=== PATIENT | female | born 1950 | race Caucasian/White ===

== ENCOUNTER 2020-03-19 17:15 | Inpatient (IN) ==
[2020-03-19] MEDS ORDERED: 0.9 % Sodium Chloride 1,000 ML IVC ONE (17:43)
[2020-03-19 18:39] LABS: Basophils % 0.5 %; Eosinophils % 0.7 %; Hematocrit 24.2 % (35.3-44.9); Hemoglobin 8.3 g/dL (11.5-15.4); Immature Granulocytes % 0.7 % (0-4); Lymphocytes # 0.7 K/mcL (0.6-4.6); Lymphocytes % 12.1 %; Mean Corpuscular HGB Conc 34.3 g/dL (31.6-35.5); Mean Corpuscular Hemoglobin 37.4 pg (28.0-33.3); Mean Platelet Volume 9.1 fL (9.4-12.4); Monocytes # 0.6 K/mcL (0.0-1.3); Monocytes % 9.4 %; Neutrophils # 4.6 K/mcL (1.6-8.9); Platelet Count 229 K/mcL (140-400); Red Blood Count 2.22 M/mcL (3.82-4.97); Red Cell Distribution Width 21.2 % (11.5-14.5); Segmented Neutrophils % 76.6 %; White Blood Count 5.9 K/mcL (4.3-11.1)
[2020-03-19 18:52] LABS: Alanine Aminotransferase 39 Units/L (7-52); Albumin 2.9 g/dL (3.5-5.7); Albumin/Globulin Ratio 1.2 (1.1-2.2); Alkaline Phosphatase 228 Units/L (34-104); Aspartate Amino Transferase 153 Units/L (13-39); BUN/Creatinine Ratio 12 (6-26); Bilirubin,Direct 1.4 mg/dL (0.0-0.2); Bilirubin,Indirect 1.1 mg/dL (0.0-1.0); Bilirubin,Total 2.5 mg/dL (0.3-1.0); Blood Urea Nitrogen 7 mg/dL (8-23); Calcium 6.2 mg/dL (8.6-10.3); Carbon Dioxide 28 mEq/L (23-29); Chloride 99 mEq/L (98-107); Globulin 2.4 g/dL (2.4-3.5); Glucose 104 mg/dL (70-105); Osmolality,Calculated 280 (280-300); Potassium 2.7 mEq/L (3.5-5.1); Sodium 136 mEq/L (136-145); Total Protein 5.3 g/dL (6.4-8.9); Troponin I 0.03 ng/mL (< 0.04); eGFR For African Americans > 60 (> 60); eGFR For Non-African Americans > 60 (> 60)
[2020-03-19 18:53] LABS: INR 1.1; Prothrombin Time 12.3 Seconds (9.4-12.1)
[2020-03-19] MEDS ORDERED: Potassium Chloride 40 MEQ, Lidocaine 1% 2 ML in D5% in Water 500 ML IVPB ONE (19:21)
[2020-03-19] MEDS ORDERED: Potassium Effervescent 25 MEQ TABLET.EFF PO ONE (19:22)
[2020-03-19] MEDS: Calcium Gluconate 1gm/50mL 1 GM/50 ML BAG IVPB SCH ×2 (20:44→22:14)
[2020-03-19 20:50] LABS: Adenovirus Not Detected (Not Detect); Bordetella Pertussis Not Detected (Not Detect); Chlamydophila pneumoniae Not Detected (Not Detect); Coronavirus 229E Not Detected (Not Detect); Coronavirus HKU1 Not Detected (Not Detect); Coronavirus NL63 Not Detected (Not Detect); Coronavirus OC43 Not Detected (Not Detect); Human Metapneumovirus Not Detected (Not Detect); Human Rhinovirus/Enterovirus Not Detected (Not Detect); Influenza A Subtype 2009 H1 Not Detected (Not Detect); Influenza B Not Detected (Not Detect); Mycoplasma pneumoniae Not Detected (Not Detect); Parainfluenza Virus 1 Not Detected (Not Detect); Parainfluenza Virus 2 Not Detected (Not Detect); Parainfluenza Virus 3 Not Detected (Not Detect); Parainfluenza Virus 4 Not Detected (Not Detect); Respiratory Syncytial Virus Not Detected (Not Detect); SARS-CoV-2 Not Detected (Not Detect)
[2020-03-19] MEDS ORDERED: Isovue-370 500 ML BOTTLE IVP ONE (21:12)
[2020-03-19 21:57] LABS: Bilirubin,Urine Negative (Negative); Blood,Urine Negative (Negative); Clarity,Urine Clear (Clear); Color,Urine Yellow (Yellow); Glucose,Urine (UA) Normal (Normal); Hyaline Casts,Urine Few per lpf (None Seen); Ketones,Urine Negative (Negative); Leukocyte Esterase,Urine Trace (Negative); Nitrite,Urine Negative (Negative); PH,Urine 7.5 pH Units (5.0-8.0); Protein,Urine 100 mg/dL (Neg-Trace); RBC,Urine 0-3 per hpf (0-3); Specific Gravity,Urine 1.008 (1.010-1.025)
[2020-03-20] MEDS ORDERED: Ondansetron ODT 4 MG TAB.RAPDIS SL PRN
[2020-03-20] MEDS ORDERED: Acetaminophen 325 MG TABLET PO PRN
[2020-03-20] MEDS ORDERED: Naloxone 0.4 MG/ML INJ IVP PRN
[2020-03-20] MEDS ORDERED: Ipratropium/Albuterol Neb 3 ML IH PRN (00:07)
[2020-03-20] MEDS ORDERED: levoFLOXacin 500 MG/100 ML 500 MG/100 ML BAG IVPB SCH (01:00)
[2020-03-20] MEDS ORDERED: Metoprolol XL (24 HR) Succ 50 MG TAB.ER.24H PO SCH (01:43)
[2020-03-20] MEDS: 0.9 % Sodium Chloride 1,000 ML IVC SCH ×2 (01:51→20:51)
[2020-03-20] MEDS: Mirtazapine 15 MG TABLET PO SCH ×2 (02:10→20:51)
[2020-03-20 02:46] LABS: Basophils % 0.6 %; Eosinophils % 1.2 %; Hematocrit 22.9 % (35.3-44.9); Hemoglobin 7.9 g/dL (11.5-15.4); Immature Granulocytes % 0.6 % (0-4); Lymphocytes # 1.1 K/mcL (0.6-4.6); Lymphocytes % 31.4 %; Mean Corpuscular HGB Conc 34.5 g/dL (31.6-35.5); Mean Corpuscular Hemoglobin 36.9 pg (28.0-33.3); Monocytes # 0.4 K/mcL (0.0-1.3); Monocytes % 10.7 %; Neutrophils # 1.9 K/mcL (1.6-8.9); Platelet Count 210 K/mcL (140-400); Red Blood Count 2.14 M/mcL (3.82-4.97); Red Cell Distribution Width 20.5 % (11.5-14.5); Segmented Neutrophils % 55.5 %; White Blood Count 3.4 K/mcL (4.3-11.1)
[2020-03-20 03:09] LABS: % Iron Saturation 37 % (15-50); Alanine Aminotransferase 187 Units/L (7-52); Albumin 2.7 g/dL (3.5-5.7); Albumin/Globulin Ratio 1.3 (1.1-2.2); Alkaline Phosphatase 363 Units/L (34-104); Aspartate Amino Transferase 590 Units/L (13-39); BUN/Creatinine Ratio 10 (6-26); Blood Urea Nitrogen 6 mg/dL (8-23); Calcium 6.4 mg/dL (8.6-10.3); Carbon Dioxide 25 mEq/L (23-29); Chloride 100 mEq/L (98-107); Cholesterol 214 mg/dL (< 200); Globulin 2.1 g/dL (2.4-3.5); Glucose 98 mg/dL (70-105); HDL Cholesterol 43 mg/dL (40-59); Iron 84 mcg/dL (50-170); LDL Cholesterol,Calculated 138 mg/dL (< 100); Magnesium 1.1 mg/dL (1.6-2.6); Osmolality,Calculated 276 (280-300); Phosphorous 2.2 mg/dL (2.7-4.5); Potassium 3.4 mEq/L (3.5-5.1); Sodium 134 mEq/L (136-145); Total Protein 4.8 g/dL (6.4-8.9); Transferrin 163 mg/dL (203-362); Triglycerides 165 mg/dL (< 150); eGFR For African Americans > 60 (> 60); eGFR For Non-African Americans > 60 (> 60)
[2020-03-20 03:10] LABS: Protein/Creatinine Ratio,Urine 3.96 mg/mg (0.00-0.20)
[2020-03-20 04:05] LABS: Ferritin 1458 ng/mL (10-120)
[2020-03-20 04:07] LABS: Folate 16.1 ng/mL (3.0-16.0)
[2020-03-20 04:37] LABS: Thyroid Stimulating Hormone 173.285 mcIU/mL (0.340-5.600)
[2020-03-20] MEDS ORDERED: Potassium Phosphate 44 MEQ in 0.9 % Sodium Chloride 250 ML IVPB ONE (07:33)
[2020-03-20] MEDS: Metoprolol XL (24 HR) Succ 50 MG TAB.ER.24H PO SCH (08:19)
[2020-03-20] MEDS: amLODIPine 5 MG TABLET PO SCH (08:19)
[2020-03-20] MEDS ORDERED: *HR* Enoxaparin 30 MG/0.3 ML SYRINGE SQ SCH (09:00)
[2020-03-21] MEDS: *HR* Enoxaparin 40 MG/0.4 ML SYRINGE SQ SCH (05:11)
[2020-03-21 05:34] LABS: Basophils % 0.6 %; Eosinophils # 0.1 K/mcL (0.0-0.6); Eosinophils % 1.2 %; Hematocrit 22.4 % (35.3-44.9); Hemoglobin 7.4 g/dL (11.5-15.4); Immature Granulocytes % 0.4 % (0-4); Lymphocytes # 0.8 K/mcL (0.6-4.6); Lymphocytes % 15.1 %; Mean Corpuscular Hemoglobin 36.5 pg (28.0-33.3); Mean Corpuscular Volume 110.3 fL (83.0-100.0); Mean Platelet Volume 9.3 fL (9.4-12.4); Monocytes % 8.9 %; Neutrophils # 3.7 K/mcL (1.6-8.9); Platelet Count 221 K/mcL (140-400); Red Blood Count 2.03 M/mcL (3.82-4.97); Red Cell Distribution Width 21.1 % (11.5-14.5); Segmented Neutrophils % 73.8 %
[2020-03-21 05:36] LABS: Monocytes # 0.5 K/mcL (0.0-1.3)
[2020-03-21 05:50] LABS: Alanine Aminotransferase 183 Units/L (7-52); Albumin 2.5 g/dL (3.5-5.7); Albumin/Globulin Ratio 1.3 (1.1-2.2); Alkaline Phosphatase 362 Units/L (34-104); Anisocytosis 1+ (Not Present); Aspartate Amino Transferase 338 Units/L (13-39); BUN/Creatinine Ratio 11 (6-26); Bilirubin,Direct 0.8 mg/dL (0.0-0.2); Bilirubin,Indirect 0.8 mg/dL (0.0-1.0); Bilirubin,Total 1.6 mg/dL (0.3-1.0); Blood Urea Nitrogen 5 mg/dL (8-23); Calcium 6.3 mg/dL (8.6-10.3); Carbon Dioxide 23 mEq/L (23-29); Chloride 105 mEq/L (98-107); Glucose 103 mg/dL (70-105); Macrocytosis Present (Not Present); Magnesium 1.5 mg/dL (1.6-2.6); Osmolality,Calculated 276 (280-300); Potassium 3.7 mEq/L (3.5-5.1); Sodium 134 mEq/L (136-145); Total Protein 4.5 g/dL (6.4-8.9); eGFR For African Americans > 60 (> 60); eGFR For Non-African Americans > 60 (> 60)
[2020-03-21 05:51] LABS: Platelet Estimate Normal (Normal)
[2020-03-21] MEDS: amLODIPine 5 MG TABLET PO SCH (08:53)
[2020-03-21] MEDS: Metoprolol XL (24 HR) Succ 50 MG TAB.ER.24H PO SCH (08:53)
[2020-03-21] MEDS ORDERED: Ipratropium Neb 0.5 MG NEBULIZER IH PRN (09:02)
[2020-03-21] MEDS: Cefepime HCl 2,000 MG in Water for inj. (sterile) 20 ML IVP SCH ×3 (09:55→23:38)
[2020-03-21] MEDS: MetroNIDAZOLE 500 MG/100 ML 500 MG/100 ML BAG IVPB SCH ×3 (09:56→23:38)
[2020-03-21] MEDS ORDERED: Calcium Gluconate 1gm/50mL 1 GM/50 ML BAG IVPB ONE (11:00)
[2020-03-21] MEDS: Ipratropium/Albuterol Neb 3 ML IH SCH ×5 (11:00→23:26)
[2020-03-21] MEDS: Furosemide 20 MG/2 ML VIAL IVP SCH (15:02)
[2020-03-21] MEDS: Mirtazapine 15 MG TABLET PO SCH (20:36)
[2020-03-22] MEDS: Ipratropium/Albuterol Neb 3 ML IH SCH ×6 (03:45→23:20)
[2020-03-22 04:26] LABS: Basophils % 0.5 %; Eosinophils # 0.1 K/mcL (0.0-0.6); Eosinophils % 1.2 %; Hematocrit 21.3 % (35.3-44.9); Hemoglobin 7.3 g/dL (11.5-15.4); Immature Granulocytes % 0.3 % (0-4); Lymphocytes # 1.3 K/mcL (0.6-4.6); Lymphocytes % 21.8 %; Mean Corpuscular HGB Conc 34.3 g/dL (31.6-35.5); Mean Corpuscular Hemoglobin 37.4 pg (28.0-33.3); Mean Corpuscular Volume 109.2 fL (83.0-100.0); Monocytes # 0.6 K/mcL (0.0-1.3); Monocytes % 10.6 %; Neutrophils # 3.8 K/mcL (1.6-8.9); Platelet Count 202 K/mcL (140-400); Red Blood Count 1.95 M/mcL (3.82-4.97); Segmented Neutrophils % 65.6 %; White Blood Count 5.8 K/mcL (4.3-11.1)
[2020-03-22 04:46] LABS: BUN/Creatinine Ratio 11 (6-26); Blood Urea Nitrogen 6 mg/dL (8-23); Carbon Dioxide 25 mEq/L (23-29); Chloride 100 mEq/L (98-107); Glucose 98 mg/dL (70-105); Magnesium 1.6 mg/dL (1.6-2.6); Osmolality,Calculated 274 (280-300); Potassium 3.2 mEq/L (3.5-5.1); Sodium 133 mEq/L (136-145); eGFR For African Americans > 60 (> 60); eGFR For Non-African Americans > 60 (> 60)
[2020-03-22] MEDS: *HR* Enoxaparin 40 MG/0.4 ML SYRINGE SQ SCH (06:23)
[2020-03-22 06:29] LABS: Alanine Aminotransferase 109 Units/L (7-52); Albumin 2.4 g/dL (3.5-5.7); Albumin/Globulin Ratio 1.2 (1.1-2.2); Alkaline Phosphatase 278 Units/L (34-104); Aspartate Amino Transferase 102 Units/L (13-39); Bilirubin,Direct 0.3 mg/dL (0.0-0.2); Bilirubin,Indirect 0.8 mg/dL (0.0-1.0); Bilirubin,Total 1.1 mg/dL (0.3-1.0); Total Protein 4.4 g/dL (6.4-8.9)
[2020-03-22] MEDS: Furosemide 20 MG/2 ML VIAL IVP SCH (09:42)
[2020-03-22] MEDS: Cefepime HCl 2,000 MG in Water for inj. (sterile) 20 ML IVP SCH ×3 (09:43→23:33)
[2020-03-22] MEDS: MetroNIDAZOLE 500 MG/100 ML 500 MG/100 ML BAG IVPB SCH ×3 (09:43→23:33)
[2020-03-22] MEDS: Metoprolol XL (24 HR) Succ 50 MG TAB.ER.24H PO SCH (09:45)
[2020-03-22] MEDS: amLODIPine 5 MG TABLET PO SCH (09:45)
[2020-03-22] MEDS: Mirtazapine 15 MG TABLET PO SCH (20:38)
[2020-03-23] MEDS: Ipratropium/Albuterol Neb 3 ML IH SCH ×2 (03:56→07:57)
[2020-03-23 04:26] LABS: Alanine Aminotransferase 74 Units/L (7-52); Albumin 2.4 g/dL (3.5-5.7); Albumin/Globulin Ratio 1.1 (1.1-2.2); Alkaline Phosphatase 227 Units/L (34-104); Aspartate Amino Transferase 45 Units/L (13-39); BUN/Creatinine Ratio 17 (6-26); Bilirubin,Direct 0.2 mg/dL (0.0-0.2); Bilirubin,Indirect 0.7 mg/dL (0.0-1.0); Bilirubin,Total 0.9 mg/dL (0.3-1.0); Blood Urea Nitrogen 9 mg/dL (8-23); Calcium 8.1 mg/dL (8.6-10.3); Carbon Dioxide 28 mEq/L (23-29); Chloride 99 mEq/L (98-107); Globulin 2.2 g/dL (2.4-3.5); Glucose 103 mg/dL (70-105); Magnesium 1.3 mg/dL (1.6-2.6); Osmolality,Calculated 275 (280-300); Potassium 3.7 mEq/L (3.5-5.1); Sodium 133 mEq/L (136-145); Total Protein 4.6 g/dL (6.4-8.9); eGFR For African Americans > 60 (> 60); eGFR For Non-African Americans > 60 (> 60)
[2020-03-23] MEDS: amLODIPine 5 MG TABLET PO SCH (07:49)
[2020-03-23] MEDS: Furosemide 20 MG/2 ML VIAL IVP SCH (07:50)
[2020-03-23] MEDS: MetroNIDAZOLE 500 MG/100 ML 500 MG/100 ML BAG IVPB SCH ×2 (07:50→16:22)
[2020-03-23] MEDS: Cefepime HCl 2,000 MG in Water for inj. (sterile) 20 ML IVP SCH ×2 (07:50→16:22)
[2020-03-23] MEDS: Metoprolol XL (24 HR) Succ 50 MG TAB.ER.24H PO SCH (07:50)
[2020-03-23 08:19] LABS: Basophils % 0.6 %; Eosinophils # 0.1 K/mcL (0.0-0.6); Eosinophils % 1.6 %; Hematocrit 23.3 % (35.3-44.9); Hemoglobin 7.6 g/dL (11.5-15.4); Immature Granulocytes % 0.5 % (0-4); Lymphocytes # 1.1 K/mcL (0.6-4.6); Lymphocytes % 17.2 %; Mean Corpuscular HGB Conc 32.6 g/dL (31.6-35.5); Mean Corpuscular Hemoglobin 35.8 pg (28.0-33.3); Mean Corpuscular Volume 109.9 fL (83.0-100.0); Monocytes # 0.8 K/mcL (0.0-1.3); Monocytes % 12.2 %; Neutrophils # 4.2 K/mcL (1.6-8.9); Platelet Count 251 K/mcL (140-400); Red Blood Count 2.12 M/mcL (3.82-4.97); Red Cell Distribution Width 19.3 % (11.5-14.5); Segmented Neutrophils % 67.9 %; White Blood Count 6.2 K/mcL (4.3-11.1)
[2020-03-23] MEDS ORDERED: Ipratropium/Albuterol Neb 3 ML IH PRN (09:19)
[2020-03-23] MEDS: Mirtazapine 15 MG TABLET PO SCH (21:31)
[2020-03-24] MEDS: MetroNIDAZOLE 500 MG/100 ML 500 MG/100 ML BAG IVPB SCH ×4 (00:15→23:35)
[2020-03-24] MEDS: Cefepime HCl 2,000 MG in Water for inj. (sterile) 20 ML IVP SCH ×4 (00:15→23:35)
[2020-03-24 04:48] LABS: Basophils % 0.7 %; Eosinophils # 0.1 K/mcL (0.0-0.6); Eosinophils % 2.3 %; Hematocrit 22.2 % (35.3-44.9); Hemoglobin 7.4 g/dL (11.5-15.4); Immature Granulocytes % 0.3 % (0-4); Lymphocytes # 1.2 K/mcL (0.6-4.6); Lymphocytes % 19.6 %; Mean Corpuscular HGB Conc 33.3 g/dL (31.6-35.5); Mean Corpuscular Hemoglobin 35.4 pg (28.0-33.3); Mean Corpuscular Volume 106.2 fL (83.0-100.0); Monocytes # 0.8 K/mcL (0.0-1.3); Monocytes % 12.9 %; Neutrophils # 3.8 K/mcL (1.6-8.9); Platelet Count 257 K/mcL (140-400); Red Blood Count 2.09 M/mcL (3.82-4.97); Red Cell Distribution Width 18.8 % (11.5-14.5); Segmented Neutrophils % 64.2 %
[2020-03-24 05:13] LABS: Alanine Aminotransferase 56 Units/L (7-52); Albumin 2.7 g/dL (3.5-5.7); Albumin/Globulin Ratio 1.3 (1.1-2.2); Alkaline Phosphatase 197 Units/L (34-104); Aspartate Amino Transferase 31 Units/L (13-39); BUN/Creatinine Ratio 16 (6-26); Bilirubin,Direct 0.2 mg/dL (0.0-0.2); Bilirubin,Indirect 0.7 mg/dL (0.0-1.0); Bilirubin,Total 0.9 mg/dL (0.3-1.0); Blood Urea Nitrogen 9 mg/dL (8-23); Calcium 8.1 mg/dL (8.6-10.3); Carbon Dioxide 31 mEq/L (23-29); Chloride 94 mEq/L (98-107); Globulin 2.1 g/dL (2.4-3.5); Glucose 88 mg/dL (70-105); Magnesium 1.4 mg/dL (1.6-2.6); Osmolality,Calculated 270 (280-300); Potassium 3.5 mEq/L (3.5-5.1); Sodium 131 mEq/L (136-145); Total Protein 4.8 g/dL (6.4-8.9); eGFR For African Americans > 60 (> 60); eGFR For Non-African Americans > 60 (> 60)
[2020-03-24] MEDS: amLODIPine 5 MG TABLET PO SCH (07:22)
[2020-03-24] MEDS: Furosemide 20 MG/2 ML VIAL IVP SCH (07:22)
[2020-03-24] MEDS: Metoprolol XL (24 HR) Succ 50 MG TAB.ER.24H PO SCH (07:22)
[2020-03-24] MEDS: Mirtazapine 15 MG TABLET PO SCH (20:26)
[2020-03-25 03:31] LABS: Basophils % 0.6 %; Eosinophils # 0.1 K/mcL (0.0-0.6); Eosinophils % 2.4 %; Hematocrit 21.2 % (35.3-44.9); Hemoglobin 7.3 g/dL (11.5-15.4); Immature Granulocytes % 0.7 % (0-4); Mean Corpuscular HGB Conc 34.4 g/dL (31.6-35.5); Mean Corpuscular Hemoglobin 37.1 pg (28.0-33.3); Mean Corpuscular Volume 107.6 fL (83.0-100.0); Mean Platelet Volume 8.6 fL (9.4-12.4); Monocytes # 0.7 K/mcL (0.0-1.3); Neutrophils # 3.5 K/mcL (1.6-8.9); Platelet Count 255 K/mcL (140-400); Red Blood Count 1.97 M/mcL (3.82-4.97); Red Cell Distribution Width 18.5 % (11.5-14.5); Segmented Neutrophils % 64.3 %; White Blood Count 5.4 K/mcL (4.3-11.1)
[2020-03-25 03:50] LABS: Alanine Aminotransferase 42 Units/L (7-52); Albumin 2.6 g/dL (3.5-5.7); Albumin/Globulin Ratio 1.2 (1.1-2.2); Alkaline Phosphatase 180 Units/L (34-104); Aspartate Amino Transferase 26 Units/L (13-39); BUN/Creatinine Ratio 19 (6-26); Bilirubin,Direct 0.3 mg/dL (0.0-0.2); Bilirubin,Indirect 0.5 mg/dL (0.0-1.0); Bilirubin,Total 0.8 mg/dL (0.3-1.0); Blood Urea Nitrogen 11 mg/dL (8-23); Calcium 8.2 mg/dL (8.6-10.3); Carbon Dioxide 32 mEq/L (23-29); Chloride 95 mEq/L (98-107); Globulin 2.2 g/dL (2.4-3.5); Glucose 88 mg/dL (70-105); Magnesium 1.4 mg/dL (1.6-2.6); Osmolality,Calculated 273 (280-300); Phosphorous 3.6 mg/dL (2.7-4.5); Potassium 3.4 mEq/L (3.5-5.1); Sodium 132 mEq/L (136-145); Total Protein 4.8 g/dL (6.4-8.9); eGFR For African Americans > 60 (> 60); eGFR For Non-African Americans > 60 (> 60)
[2020-03-25] MEDS: Cefepime HCl 2,000 MG in Water for inj. (sterile) 20 ML IVP SCH ×2 (07:10→14:58)
[2020-03-25] MEDS: Furosemide 20 MG/2 ML VIAL IVP SCH (07:11)
[2020-03-25] MEDS: MetroNIDAZOLE 500 MG/100 ML 500 MG/100 ML BAG IVPB SCH ×2 (07:11→14:58)
[2020-03-25] MEDS: Metoprolol XL (24 HR) Succ 50 MG TAB.ER.24H PO SCH (07:11)
[2020-03-25] MEDS: amLODIPine 5 MG TABLET PO SCH (07:11)
[2020-03-25] MEDS: Mirtazapine 15 MG TABLET PO SCH (20:15)
[2020-03-26] MEDS: Cefepime HCl 2,000 MG in Water for inj. (sterile) 20 ML IVP SCH ×3 (00:28→14:56)
[2020-03-26] MEDS: MetroNIDAZOLE 500 MG/100 ML 500 MG/100 ML BAG IVPB SCH ×3 (00:29→14:56)
[2020-03-26 03:32] LABS: Basophils % 0.7 %; Eosinophils # 0.1 K/mcL (0.0-0.6); Eosinophils % 1.9 %; Hematocrit 22.1 % (35.3-44.9); Hemoglobin 7.4 g/dL (11.5-15.4); Immature Granulocytes % 0.3 % (0-4); Lymphocytes # 1.2 K/mcL (0.6-4.6); Lymphocytes % 21.6 %; Mean Corpuscular HGB Conc 33.5 g/dL (31.6-35.5); Mean Corpuscular Hemoglobin 36.3 pg (28.0-33.3); Mean Corpuscular Volume 108.3 fL (83.0-100.0); Monocytes # 0.8 K/mcL (0.0-1.3); Monocytes % 14.5 %; Neutrophils # 3.5 K/mcL (1.6-8.9); Platelet Count 321 K/mcL (140-400); Red Blood Count 2.04 M/mcL (3.82-4.97); Red Cell Distribution Width 18.2 % (11.5-14.5); White Blood Count 5.7 K/mcL (4.3-11.1)
[2020-03-26 03:43] LABS: BUN/Creatinine Ratio 29 (6-26); Blood Urea Nitrogen 16 mg/dL (8-23); Calcium 8.1 mg/dL (8.6-10.3); Carbon Dioxide 32 mEq/L (23-29); Chloride 93 mEq/L (98-107); Glucose 92 mg/dL (70-105); Osmolality,Calculated 273 (280-300); Potassium 4.1 mEq/L (3.5-5.1); Sodium 131 mEq/L (136-145); eGFR For African Americans > 60 (> 60); eGFR For Non-African Americans > 60 (> 60)
[2020-03-26] MEDS: Metoprolol XL (24 HR) Succ 50 MG TAB.ER.24H PO SCH (08:25)
[2020-03-26] MEDS: amLODIPine 5 MG TABLET PO SCH (08:25)
[2020-03-26] MEDS ORDERED: MethylPREDNISolone 40 MG/ML VIAL IVP ONE (13:46)
[2020-03-26] MEDS: Ipratropium/Albuterol Neb 3 ML IH SCH ×2 (18:50→20:14)
[2020-03-26] MEDS: Mirtazapine 15 MG TABLET PO SCH (21:55)
[2020-03-27] MEDS: Cefepime HCl 2,000 MG in Water for inj. (sterile) 20 ML IVP SCH ×2 (00:07→08:48)
[2020-03-27] MEDS: MetroNIDAZOLE 500 MG/100 ML 500 MG/100 ML BAG IVPB SCH ×2 (00:09→08:49)
[2020-03-27] MEDS: Ipratropium/Albuterol Neb 3 ML IH SCH ×4 (00:16→12:05)
[2020-03-27 05:18] LABS: BUN/Creatinine Ratio 32 (6-26); Blood Urea Nitrogen 20 mg/dL (8-23); Calcium 8.8 mg/dL (8.6-10.3); Carbon Dioxide 30 mEq/L (23-29); Chloride 94 mEq/L (98-107); Glucose 103 mg/dL (70-105); Osmolality,Calculated 273 (280-300); Potassium 4.1 mEq/L (3.5-5.1); Sodium 130 mEq/L (136-145); eGFR For African Americans > 60 (> 60); eGFR For Non-African Americans > 60 (> 60)
[2020-03-27] MEDS: amLODIPine 5 MG TABLET PO SCH (08:48)
[2020-03-27] MEDS: Metoprolol XL (24 HR) Succ 50 MG TAB.ER.24H PO SCH (08:48)
[2020-03-27] MEDS ORDERED: predniSONE 20 MG TABLET PO SCH (09:00)
[2020-03-27 10:58] VITALS: BP 115/64
== END 2020-03-27 12:37 | disposition home or self-care (01) | DRG 177 ==
LOC: EMEROOARM 17:15 → 3ANU 17:15 → SUATTDRO 23:04 → 3ANU 23:44 → SUATTDRO 03-20 12:43
PROVIDERS: ADMIT Internal Medicine; ATTEND Internal Medicine

== ENCOUNTER 2020-04-15 19:33 | Observation (INO) ==
[2020-04-15] MEDS ORDERED: methylPREDNISolone 125 MG/2 ML VIAL IVP ONE (19:45)
[2020-04-15] MEDS ORDERED: Ipratropium/Albuterol Neb 3 ML IH ONE (19:46)
[2020-04-15 20:28] LABS: Basophils % 0.2 %; Eosinophils # 0.1 K/mcL (0.0-0.6); Eosinophils % 0.8 %; Hematocrit 24.5 % (35.3-44.9); Hemoglobin 7.8 g/dL (11.5-15.4); Immature Granulocytes % 0.4 % (0-4); Lymphocytes # 0.8 K/mcL (0.6-4.6); Lymphocytes % 8.9 %; Mean Corpuscular HGB Conc 31.8 g/dL (31.6-35.5); Mean Corpuscular Hemoglobin 31.8 pg (28.0-33.3); Mean Platelet Volume 8.7 fL (9.4-12.4); Monocytes % 10.9 %; Neutrophils # 7.5 K/mcL (1.6-8.9); Platelet Count 401 K/mcL (140-400); Red Blood Count 2.45 M/mcL (3.82-4.97); Red Cell Distribution Width 16.3 % (11.5-14.5); Segmented Neutrophils % 78.8 %; White Blood Count 9.5 K/mcL (4.3-11.1)
[2020-04-15 20:48] LABS: BUN/Creatinine Ratio 25 (6-26); Blood Urea Nitrogen 15 mg/dL (8-23); Calcium 8.8 mg/dL (8.6-10.3); Carbon Dioxide 29 mEq/L (23-29); Chloride 94 mEq/L (98-107); Glucose 124 mg/dL (70-105); Osmolality,Calculated 284 (280-300); Potassium 2.8 mEq/L (3.5-5.1); Sodium 136 mEq/L (136-145); eGFR For African Americans > 60 (> 60); eGFR For Non-African Americans > 60 (> 60)
[2020-04-15 20:49] LABS: Troponin I < 0.03 ng/mL (< 0.04)
[2020-04-15] MEDS ORDERED: Potassium Chloride Elixir 20 MEQ/15 ML UDC PO ONE (21:07)
[2020-04-15 21:23] LABS: Magnesium 1.5 mg/dL (1.6-2.6)
[2020-04-15] MEDS ORDERED: Magnesium Sulfate 1 GM/102 ML PIGGYBACK IVPB ONE (21:26)
[2020-04-15] MEDS: 0.9 % Sodium Chloride 1,000 ML IVC SCH (21:43)
[2020-04-15] MEDS ORDERED: Ondansetron ODT 4 MG TAB.RAPDIS SL PRN (23:08)
[2020-04-15] MEDS ORDERED: Acetaminophen 325 MG TABLET PO PRN (23:08)
[2020-04-15] MEDS ORDERED: Naloxone 0.4 MG/ML INJ IVP PRN (23:08)
[2020-04-16 00:56] LABS: Hematocrit 21.7 % (35.3-44.9); Hemoglobin 7.1 g/dL (11.5-15.4); Mean Corpuscular HGB Conc 32.7 g/dL (31.6-35.5); Mean Corpuscular Hemoglobin 32.3 pg (28.0-33.3); Mean Corpuscular Volume 98.6 fL (83.0-100.0); Mean Platelet Volume 8.8 fL (9.4-12.4); Platelet Count 357 K/mcL (140-400); Red Cell Distribution Width 16.2 % (11.5-14.5); White Blood Count 7.5 K/mcL (4.3-11.1)
[2020-04-16 01:14] LABS: BUN/Creatinine Ratio 27 (6-26); Blood Urea Nitrogen 14 mg/dL (8-23); Calcium 8.6 mg/dL (8.6-10.3); Carbon Dioxide 29 mEq/L (23-29); Chloride 98 mEq/L (98-107); Glucose 169 mg/dL (70-105); Magnesium 2.1 mg/dL (1.6-2.6); Osmolality,Calculated 284 (280-300); Phosphorous 2.7 mg/dL (2.7-4.5); Potassium 3.6 mEq/L (3.5-5.1); Sodium 135 mEq/L (136-145); eGFR For African Americans > 60 (> 60); eGFR For Non-African Americans > 60 (> 60)
[2020-04-16] MEDS: methylPREDNISolone 125 MG/2 ML VIAL IVP SCH ×3 (03:23→23:22)
[2020-04-16] MEDS: 0.9 % Sodium Chloride 1,000 ML IVC SCH ×2 (06:25→19:19)
[2020-04-16] MEDS: Azithromycin 250 MG TABLET PO SCH (09:16)
[2020-04-16] MEDS ORDERED: 0.9 % Sodium Chloride 250 ML ONE (11:27)
[2020-04-16] MEDS ORDERED: methylPREDNISolone 125 MG/2 ML VIAL IVP SCH (12:00)
[2020-04-16 13:36] LABS: Bilirubin,Urine Negative (Negative); Blood,Urine Negative (Negative); Clarity,Urine Clear (Clear); Color,Urine Light-Yellow (Yellow); Glucose,Urine (UA) Normal (Normal); Hyaline Casts,Urine Few per lpf (None Seen); Ketones,Urine Negative (Negative); Leukocyte Esterase,Urine Small (Negative); Mucus,Urine Few per lpf (None-Few); Nitrite,Urine Negative (Negative); Protein,Urine 50 mg/dL (Neg-Trace); RBC,Urine 0-3 per hpf (0-3); Specific Gravity,Urine 1.015 (1.010-1.025); Squamous Epithelial Cell,Urine Few per hpf (None-Few); Transitional Epi Cells,Urine Moderate per hpf (None-Few); Urobilinogen,Urine Normal (Normal)
[2020-04-16] MEDS ORDERED: GuaiFENesin Liq 200 MG/10 ML UDC PO PRN (17:55)
[2020-04-16] MEDS ORDERED: GuaiFENesin Liq 200 MG/10 ML UDC PO ONE (17:55)
[2020-04-16] MEDS: Mirtazapine 15 MG TABLET PO SCH (20:19)
[2020-04-16 20:36] LABS: Hematocrit 26.2 % (35.3-44.9); Hemoglobin 8.5 g/dL (11.5-15.4)
[2020-04-17] MEDS: methylPREDNISolone 125 MG/2 ML VIAL IVP SCH (06:06)
[2020-04-17 07:23] LABS: Hemoglobin 8.3 g/dL (11.5-15.4); Mean Corpuscular HGB Conc 31.9 g/dL (31.6-35.5); Mean Corpuscular Hemoglobin 31.9 pg (28.0-33.3); Mean Platelet Volume 8.9 fL (9.4-12.4); Platelet Count 376 K/mcL (140-400); Red Cell Distribution Width 15.6 % (11.5-14.5); White Blood Count 10.4 K/mcL (4.3-11.1)
[2020-04-17 07:41] LABS: BUN/Creatinine Ratio 42 (6-26); Blood Urea Nitrogen 19 mg/dL (8-23); Calcium 8.4 mg/dL (8.6-10.3); Carbon Dioxide 27 mEq/L (23-29); Chloride 105 mEq/L (98-107); Glucose 131 mg/dL (70-105); Osmolality,Calculated 292 (280-300); Potassium 4.4 mEq/L (3.5-5.1); Sodium 139 mEq/L (136-145); eGFR For African Americans > 60 (> 60); eGFR For Non-African Americans > 60 (> 60)
[2020-04-17] MEDS: Azithromycin 250 MG TABLET PO SCH (09:05)
[2020-04-17] MEDS: Metoprolol XL (24 HR) Succ 50 MG TAB.ER.24H PO SCH (09:06)
[2020-04-17] MEDS: Ipratropium/Albuterol Neb 3 ML IH SCH ×4 (10:24→19:59)
[2020-04-17] MEDS: Budesonide/Formoterol 160/4.5 1 PUFF INH IH SCH ×2 (10:55→19:59)
[2020-04-17] MEDS: Furosemide 20 MG/2 ML VIAL IVP SCH ×2 (12:20→17:33)
[2020-04-17] MEDS ORDERED: MethylPREDNISolone 40 MG/ML VIAL IVP SCH (18:00)
[2020-04-17] MEDS: Mirtazapine 15 MG TABLET PO SCH (21:23)
[2020-04-18] MEDS: Ipratropium/Albuterol Neb 3 ML IH SCH ×4 (00:02→11:16)
[2020-04-18 04:00] LABS: Hematocrit 25.6 % (35.3-44.9); Hemoglobin 8.3 g/dL (11.5-15.4); Mean Corpuscular HGB Conc 32.4 g/dL (31.6-35.5); Mean Corpuscular Hemoglobin 32.2 pg (28.0-33.3); Mean Corpuscular Volume 99.2 fL (83.0-100.0); Mean Platelet Volume 8.7 fL (9.4-12.4); Platelet Count 393 K/mcL (140-400); Red Blood Count 2.58 M/mcL (3.82-4.97); Red Cell Distribution Width 15.9 % (11.5-14.5); White Blood Count 11.1 K/mcL (4.3-11.1)
[2020-04-18 04:17] LABS: BUN/Creatinine Ratio 46 (6-26); Blood Urea Nitrogen 25 mg/dL (8-23); Calcium 8.6 mg/dL (8.6-10.3); Carbon Dioxide 30 mEq/L (23-29); Chloride 100 mEq/L (98-107); Glucose 117 mg/dL (70-105); Osmolality,Calculated 289 (280-300); Potassium 3.8 mEq/L (3.5-5.1); Sodium 137 mEq/L (136-145); eGFR For African Americans > 60 (> 60); eGFR For Non-African Americans > 60 (> 60)
[2020-04-18] MEDS: Budesonide/Formoterol 160/4.5 1 PUFF INH IH SCH (07:41)
[2020-04-18] MEDS: Furosemide 20 MG/2 ML VIAL IVP SCH (08:49)
[2020-04-18] MEDS: Azithromycin 250 MG TABLET PO SCH (08:49)
[2020-04-18] MEDS: Metoprolol XL (24 HR) Succ 50 MG TAB.ER.24H PO SCH (08:49)
[2020-04-18] MEDS ORDERED: predniSONE 20 MG TABLET PO SCH (09:00)
[2020-04-18 10:28] VITALS: BP 113/66
== END 2020-04-18 13:57 | disposition home or self-care (01) ==
LOC: EMEROOARM 19:33 → 3ANU 19:33
PROVIDERS: ADMIT Student in an Organized Health Care Education/Training Program; ATTEND Student in an Organized Health Care Education/Training Program